=== PATIENT | female | born 1995 | race Two or more races ===

== ENCOUNTER 2024-08-31 05:42 | Emergency (ER) | payer OTHER ==
[~2024-08-31] VITALS: Ht 175.3 cm; Wt 90.7 kg
[2024-08-31] MEDS ORDERED: ACETAMINOPHEN ES 500 MG TABLET ONE (06:19)
[2024-08-31] MEDS ORDERED: ONDANSETRON HCL/PF 4 MG/2 ML VIAL ONE (06:19)
[2024-08-31] MEDS: IV NS 0.9% 1,000 ML BAG IV ONE ×2 (06:22→07:07)
[2024-08-31] MEDS: ONDANSETRON HCL/PF 4 MG/2 ML VIAL IVP ONE (06:23)
[2024-08-31] MEDS: ACETAMINOPHEN ES 500 MG TABLET PO ONE (06:33)
[2024-08-31 06:35] LABS: BASOPHILS % (AUTO) 0.2 % (0.0-2.0); EOSINOPHILS % (AUTO) 0.3 % (0.0-6.0); HEMATOCRIT 45 % (33-45); HEMOGLOBIN 15.1 g/dL (11.5-14.8); LYMPHOCYTES # (AUTO) 0.6 K/uL (0.8-4.8); LYMPHOCYTES % (AUTO) 5.5 % (20.0-44.0); MEAN CORPUSCULAR HEMOGLOBIN 28 PG (26.0-33.0); MEAN CORPUSCULAR HGB CONC 34 g/dl (31.0-36.0); MEAN CORPUSCULAR VOLUME 84 fL (82-100); MONOCYTES # (AUTO) 0.7 K/uL (0.1-1.30); MONOCYTES % (AUTO) 5.7 % (2.0-12.0); NEUTROPHILS # (AUTO) 10.4 K/uL (1.8-8.9); NEUTROPHILS % (AUTO) 88.3 % (43.0-81.0); PLATELET COUNT (AUTO) 291 K/uL (150-450); RED BLOOD CELL COUNT(AUTO) 5.31 MIL/uL (4.0-5.2); RED CELL DISTRIBUTION WIDTH 12.8 % (11.5-15.0); WHITE BLOOD COUNT (AUTO) 11.7 K/uL (4.3-11.0)
[2024-08-31 06:38] LABS: CALCIUM, SERUM 8.5 mg/dL (8.5-10.1); CREATININE 0.7 mg/dL (0.6-1.3); POTASSIUM 3.6 mmol/L (3.5-5.1)
[2024-08-31 06:43] LABS: ALBUMIN 4.2 g/dL (3.4-5.0); BILIRUBIN,DIRECT 0.2 mg/dL (0.0-0.2); BILIRUBIN,TOTAL 0.8 mg/dL (0.2-1.0); TOTAL PROTEIN, SERUM 8.9 g/dL (6.4-8.2)
[2024-08-31] MEDS ORDERED: METOCLOPRAMIDE HCL 10 MG/2 ML VIAL ONE (07:05)
[2024-08-31] MEDS ORDERED: LOPERAMIDE HCL (2 MG CAP) 2 MG CAPSULE ONE (07:05)
[2024-08-31] MEDS: METOCLOPRAMIDE HCL 10 MG/2 ML VIAL IV ONE (07:19)
[2024-08-31] MEDS: LOPERAMIDE HCL (2 MG CAP) 2 MG CAPSULE PO ONE (07:21)
[2024-08-31] MEDS ORDERED: LOPE2CAP40 PO (07:28)
[2024-08-31] MEDS ORDERED: ONDA4TAB11 PO (07:28)
[2024-08-31 07:34] VITALS: BP 97/64; TEMP 99; O2SAT 97
[2024-08-31 08:39] LABS: APPEARANCE,URINE CLEAR (CLEAR); BILIRUBIN,URINE NEGATIVE (NEGATIVE); BLOOD, URINE 2+ Ery/uL (NEGATIVE); COLOR,URINE YELLOW (YELLOW); KETONES,URINE NEGATIVE (NEGATIVE); LEUKOCYTE ESTERASE ,URINE NEGATIVE (NEGATIVE); NITRITE, URINE NEGATIVE (NEGATIVE); PROTEIN,URINE TRACE mg/dl (NEGATIVE); UGLUCOSE NEGATIVE (NEGATIVE); UROBILINOGEN,URINE 0.2 EU/dL (0.2)
[2024-08-31 08:44] LABS: ADD URINE CULTURE NO; BACTERIA,URINE Rare /HPF (None Seen); SQUAMOUS EPITHELIAL CELL,UR Few /HPF (None Seen); WBC,URINE 0-2 /HPF (0-3)
== END 2024-08-31 07:35 | disposition home or self-care (01) ==
LOC: ER 06:14
DX: K52.9 Noninfective gastroenteritis and colitis, unspecified (principal); R11.2 Nausea with vomiting, unspecified
CPT/HCPCS: 99284; 96374; 96361; 96375; 85025; 80048; 83690; 80076; 81001; 36415; 84702; J2765; J2405; J7030; A4223